=== PATIENT | female | born 1990 | race Caucasian/White ===

== ENCOUNTER 2018-04-06 07:33 | Inpatient (IN) ==
[2018-04-06] MEDS ORDERED: fentaNYL Citrate Inj 100 MCG/2 ML Ampul IV.PUSH PRN ×2 (08:44)
[2018-04-06] MEDS ORDERED: Oxytocin 30 Units/500ml Premix 30 UNITS/500 ML BAG IV.SIG ONE (08:44)
[2018-04-06] MEDS ORDERED: Sod Chloride 0.9% Inj 1,000 ML IV.CONT PRN (08:44)
[2018-04-06] MEDS ORDERED: Oxytocin 30 Units/500ml Premix 30 UNITS/500 ML BAG IV.SIG PRN (08:44)
[2018-04-06] MEDS ORDERED: Sodium Chlor 0.9% Inj 500 ML IV.SIG PRN (08:44)
[2018-04-06] MEDS ORDERED: Naloxone Inj 0.4 MG/ML Vial IV.PUSH PRN ×2 (08:44→14:15)
[2018-04-06] MEDS ORDERED: Citric Acid/Sodium Citrate Liq 30 ML UDC PO SCH (08:45)
[2018-04-06 09:16] LABS: Baso % (Auto) 0.2 % (0.0-2.0); Eos % (Auto) 0.7 % (0.0-4.0); Hematocrit 37.3 % (35.0-46.0); Hemoglobin 12.5 gm/dL (11.6-15.3); Lymph # (Auto) 1.3 th/mm3 (1.0-4.8); Lymph % (Auto) 18.1 % (9.0-44.0); Mean Corpuscular HGB Conc 33.5 % (32.0-36.0); Mean Corpuscular Volume 83.7 fL (80.0-100.0); Mean Platelet Volume 8.6 fL (7.0-11.0); Mono # (Auto) 0.5 th/mm3 (0.0-0.9); Neut # (Auto) 5.2 th/mm3 (1.8-7.7); Platelet Count 202 th/mm3 (150-450); Red Blood Count 4.45 mil/mm3 (4.00-5.30); Red Cell Distribution Width 14.2 % (11.6-17.2)
[2018-04-06] MEDS ORDERED: fentaNYL 2MCG-Bupiv 0.125% Epi 150 ML EPIDURAL ONE (10:50)
[2018-04-06] MEDS ORDERED: Lidocaaine 1.5%/Epinephrine 1:200,000 PF Inj 5 ML Amp ONE (10:55)
[2018-04-06] MEDS ORDERED: Lidocaine PF 1% Inj 5 ML Vial ONE (10:55)
[2018-04-06 11:13] LABS: Bilirubin,Urine Negative (Negative); Clarity,Urine Hazy (Clear); Color,Urine Yellow (Yellw/Straw); Glucose,Urine (UA) Negative (Negative); Leukocyte Esterase,Urine Trace (Negative); Mucus,Urine Few /lpf (Occasional); Nitrite,Urine Negative (Negative); Specific Gravity,Urine 1.018 (1.002-1.035); Squamous Epithelial Cell,Urine 5 /hpf (0-5)
[2018-04-06 11:15] LABS: Amphetamine Urine With Conf Neg (Neg); Benzodiazepine Urine With Conf Neg (Neg)
--- NOTE | 2018-04-06 14:09 | P.HPOB ---
History of Present Illness Service: ob Primary Care Physician: No Primary Care Physician Chief Complaint: iol History of Present Illness: 27 yo withiup at 39 wk admitted for iol as she has favorable cervix at term. 39w2 d today. SVE 4-50/-2. good fm, irreg ctx, neg vb or lof. 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 Weeks Gestation:: 39 Para: 1 : 2 - Inpatient Certification I certify that the inpatient services were ordered in accordance with Medicare regulations governing the order. This includes certification that hospital inpatient services are reasonable and necessary and in the case of services not specified as inpatient-only under 42 CFR 419.22(n), that they are appropriately provided as inpatient services in accordance to with the 2-midnight benchmark under 43 CFR 412.3(e) Estimated Total Length of Stay (Days): 3 Plans for Post Hospital Care: Home Review of Systems All other systems reviewed negative except as stated in HPI PMFSH - Tobacco History Second Hand Smoke Exposure: No Smoking Status: Never smoker - Travel History Recent Travel in the [place] Within the Last 8 Weeks: No Recent Travel Out of the Country Within the Last 8 Weeks: No Medications and Allergies Active Medications: Active Medications Citric Acid/Sodium Citrate (Sodium Citrate/Citric Acid Liq) 30 ml PO [facility] Stop: 04/10/18 08:44 Fentanyl Citrate (Fentanyl Inj) 50 mcg IV.PUSH Q1H PRN PRN Reason: Pain Scale 3 - 5 Fentanyl Citrate (Fentanyl Inj) 100 mcg IV.PUSH Q1H PRN PRN Reason: PAIN SCALE 6 TO 10 Lactated Ringer's (Lr 1000 Ml Inj) 1,000 mls @ 125 mls/hr IV.CONT .Q8H [facility] Last Admin: 04/06/18 11:16 Dose: 125 mls/hr Lactated Ringer's (Lr 1000 Ml Inj) 1,000 mls @ 3,000 mls/hr IV.SIG UNSCH PRN PRN Reason: compromise or epidural Sodium Chloride (Ns Inj) 500 mls @ 1,000 mls/hr IV.SIG UNSCH PRN PRN Reason: SEE LABEL COMMENTS Oxytocin (Pitocin 30 Units/Ns 500 Ml Premix) 30 units in 500 mls @ 2 mls/hr IV.SIG TITRATE PRN; Protocol PRN Reason: For induction of labor Last Admin: 04/06/18 09:13 Dose: 2 milliunit/min, 2 mls/hr Sodium Chloride (Ns Inj) 1,000 mls @ 100 mls/hr IV.CONT .Q10H PRN PRN Reason: SEE LABEL COMMENTS Lidocaine HCl (Xylocaine 1% Inj) 0.1 ml I-DERMAL PRN PRN PRN Reason: For IV start Stop: 04/09/18 08:43 Lidocaine HCl (Xylocaine 1% Inj) 10 ml INFILTRATN PRN PRN PRN Reason: For episiotomy repair Stop: 04/08/18 08:43 Mineral Oil (Muri-Lube Oil) 10 ml TOPICAL PRN PRN PRN Reason: PRN perineal massage Naloxone HCl (Narcan Inj) 0.1 mg IV.PUSH Q2M PRN PRN Reason: for opiate reversal Ondansetron HCl (Zofran Inj) 4 mg IV.PUSH Q6H PRN PRN Reason: NAUSEA OR VOMITING Allergies Allergy/AdvReac Type Severity Reaction Status Date / Time No Known Allergies Allergy Verified 04/06/18 08:26 Home Medications Medication Instructions Recorded Confirmed Type 21-iron fu-folic acid 1 tab PO DAILY 04/06/18 04/06/18 History Exam Vital signs: Vital Signs 04/06/18 08:01 04/06/18 09:25 04/06/18 09:31 Temperature 98.6 F Pulse Rate 118 H 103 H 91 H Respiratory Rate 16 Blood Pressure 127/83 135/81 129/94 H 04/06/18 09:40 04/06/18 10:05 04/06/18 10:25 Temperature Pulse Rate 97 H 99 H 89 Respiratory Rate Blood Pressure 121/86 118/59 L 04/06/18 10:45 04/06/18 11:13 04/06/18 11:16 Temperature 97.9 F Pulse Rate 91 H 85 96 H Respiratory Rate 18 Blood Pressure 108/62 148/75 H 123/62 04/06/18 11:28 04/06/18 11:30 04/06/18 12:10 Temperature Pulse Rate 102 H 92 H 90 Respiratory Rate Blood Pressure 91/45 L 99/44 L 04/06/18 12:25 04/06/18 13:01 04/06/18 13:15 Temperature Pulse Rate 95 H 103 H 112 H Respiratory Rate Blood Pressure 89/47 L 127/86 04/06/18 13:16 Temperature Pulse Rate 100 H Respiratory Rate Blood Pressure 128/89 Intake & Output 04/05/18 04/06/18 04/06/18 18:59 06:59 18:59 Intake Total 1000 / 1000 Balance 1000 / 1000 Weight 108.862 kg Intake: IV 1000 / 1000 LR 1000 mL Inj 1,000 ML @ 125 1000 / 1000 mls/hr IV.CONT .Q8H [facility] Rx#: [id number] Other: Weight On Admission 108.862 kg - Constitutional no acute distress - Routine HEENT Exam Head: Present: normocephalic - Routine Respiratory Exam Absent: accessory muscle use, decreased breath sounds - Routine Cardiovascular Exam Present: RRR. Absent: murmur - Routine Abdominal Exam Present: soft. Absent: organomegaly - Routine Exam Comments: sve 5/50/-2, arom clear - Routine Extremities Exam Absent: cyanosis, clubbing, edema - Routine Neurological Exam Present: alert, oriented X3 Results - Labs CBC & Chem 7: 04/06/18 08:15 Labs: Laboratory Results - last 24 hr 04/06/18 04/06/18 04/06/18 08:15 08:15 08:15 WBC 7.0 RBC 4.45 Hgb 12.5 Hct 37.3 MCV 83.7 MCH 28.0 MCHC 33.5 RDW 14.2 Plt Count 202 MPV 8.6 Neut % (Auto) 74.0 H Lymph % (Auto) 18.1 [place] % (Auto) 7.0 Eos % (Auto) 0.7 Baso % (Auto) 0.2 Neut # (Auto) 5.2 Lymph # (Auto) 1.3 [place] # (Auto) 0.5 Eos # (Auto) 0.0 Baso # (Auto) 0.0 WBC Differential . Differential Comment Auto diff final Urine Color Urine Clarity Urine pH Ur Specific [place] Urine Protein Urine Glucose (UA) Urine Ketones Urine Occult Blood Urine Nitrate Urine Bilirubin Urine Urobilinogen Ur Leukocyte Esterase Urine WBC Ur Squamous Epith Cells Urine Mucus Micro UA Comment Ur Microscopic Review Urine Culture Comments Urine Opiates Screen Neg Ur Barbiturates Screen Neg Ur Amphetamine Screen Neg U Benzodiazepines Scrn Neg Urine Cocaine Screen Neg U Cannabinoids Screen Neg Blood Type B Negative 04/06/18 08:15 WBC RBC Hgb Hct MCV MCH MCHC RDW Plt Count MPV Neut % (Auto) Lymph % (Auto) [place] % (Auto) Eos % (Auto) Baso % (Auto) Neut # (Auto) Lymph # (Auto) [place] # (Auto) Eos # (Auto) Baso # (Auto) WBC Differential Differential Comment Urine Color Yellow Urine Clarity Hazy H Urine pH 7.0 Ur Specific Kendall 1.018 Urine Protein 30 H Urine Glucose (UA) Negative Urine Ketones Negative Urine Occult Blood Small H Urine Nitrate Negative Urine Bilirubin Negative Urine Urobilinogen Less than 2 Ur Leukocyte Esterase Trace H Urine WBC 3 Ur Squamous Epith Cells 5 Urine Mucus Few H Micro UA Comment Culture not ind Ur Microscopic Review Not Reportable Urine Culture Comments Culture not ind Urine Opiates Screen Ur Barbiturates Screen Ur Amphetamine Screen U Benzodiazepines Scrn Urine Cocaine Screen U Cannabinoids Screen Blood Type Group B Strep: Negative Caprini VTE Risk Assessment Caprini VTE Risk Assessment: No/Low Risk (score <= 1) Caprini Risk Assessment Model: Point Value = 1 Point Value = 2 Point Value = 3 Point Value = 5 Age 41-60 Minor surgery BMI > 25 kg/m2 Swollen legs Varicose veins or History of unexplained or recurrent spontaneous Oral contraceptives or hormone replacement Sepsis (< 1 month) Serious lung disease, including pneumonia (< 1 month) Abnormal pulmonary function Acute myocardial infarction Congestive heart failure (< 1 month) History of inflammatory bowel disease Medical patient at bed rest Age 61-74 Arthroscopic surgery Major open surgery (> 45 min) Laparoscopic surgery (> 45 min) Malignancy Confined to bed (> 72 hours) Immobilizing plaster cast Central venous access Age >= 75 History of VTE Family history of VTE Factor V Leiden Prothrombin [id number] Lupus anticoagulant Anticardiolipin antibodies Elevated serum homocysteine Heparin-induced thrombocytopenia Other congenital or acquired thrombophilia Stroke (< 1 month) Elective arthroplasty Hip, pelvis, or leg fracture Acute spinal cord injury (< 1 month) Prophylaxis Regimen: Total Risk Factor Score Risk Level Prophylaxis Regimen 0-1 Low Early ambulation 2 Moderate Order ONE of the following: *Sequential Compression Device (SCD) *Heparin 5000 units SQ BID 3-4 Higher Order ONE of the following medications: *Heparin 5000 units SQ TID *Enoxaparin/Lovenox 40 mg SQ daily (WT < 150 kg, CrCl > 30 mL/min) *Enoxaparin/Lovenox 30 mg SQ daily (WT < 150 kg, CrCl > 10-29 mL/min) *Enoxaparin/Lovenox 30 mg SQ BID (WT < 150 kg, CrCl > 30 mL/min) AND/OR *Sequential Compression Device (SCD) 5 or more Highest Order ONE of the following medications: *Heparin 5000 units SQ TID (Preferred with Epidurals) *Enoxaparin/Lovenox 40 mg SQ daily (WT < 150 kg, CrCl > 30 mL/min) *Enoxaparin/Lovenox 30 mg SQ daily (WT < 150 kg, CrCl > 10-29 mL/min) *Enoxaparin/Lovenox 30 mg SQ BID (WT < 150 kg, CrCl > 30 mL/min) AND *Sequential Compression Device (SCD) Assessment and Plan - Diagnosis (1) Labor and delivery indication for care or intervention Code(s): O75.9 - Complication of labor and delivery, unspecified Status: Acute (2) Rh negative state in antepartum period Code(s): O09.899 - Supervision of other high risk pregnancies, unspecified trimester; Z67.91 - Unspecified blood type, Rh negative Status: Acute (3) Abnormal glucose tolerance in mother complicating Code(s): O99.810 - Abnormal glucose complicating Status: Acute (4) Obesity (BMI 30-39.9) Code(s): E66.9 - Obesity, unspecified Status: Acute - Plan LAte entry, pt seen at 0845 this am 27 yo withiup at 39 wk admitted for iol as she has favorable cervix at term. 39w2 d today. 1) IOL- arom and pitocin 2) obesity and abn 1 hour- SD precautions 3) RH neg- rhogam eval 4) Varicella non-immune - needs vaccine 5) GBS neg 6) Fetus male roge, efw 7.5-8 lb. Cat I
[2018-04-06] MEDS ORDERED: Benzocaine 20% Top Spray 60 ML Can TOPICAL PRN (14:15)
[2018-04-06] MEDS ORDERED: Witch Hazel 50%/Glyderin 12.5% 40 Pad Jar RECTAL PRN (14:15)
[2018-04-06] MEDS ORDERED: Bisacodyl 10 MG Supp RECTAL PRN (14:15)
[2018-04-06] MEDS ORDERED: Ibuprofen 400 MG Tablet PO PRN (14:15)
[2018-04-06] MEDS ORDERED: Zolpidem Tartrate 5 MG Tablet PO PRN (14:15)
[2018-04-06] MEDS ORDERED: Oxytocin 30 Units/500ml Premix 30 UNITS/500 ML BAG IV.CONT PRN (14:15)
[2018-04-06] MEDS ORDERED: Acetaminophen 325 MG Tablet PO PRN (14:15)
--- NOTE | 2018-04-06 14:15 | P.OBDELI ---
Weeks Gestation: 39 Patient Started Active Labor: Yes Artificial Rupture of Membrane: Yes (clear) Anesthesia: Epidural Episiotomy: none Vaginal Delivery: Normal Presentation: Occiput anterior Nuchal Cord: None Delayed Cord Clamping (45 sec): Yes Shoulder Dystocia: Suprapubic pressure given, Tati maneuver done, Other ( less than 30 sec from delivery of head to body. Tati and suprapubic performed. Anterior shoulder palpated and not under suprapubic bone. Posterior shoulder delivered easily and rest of body readily followed. ) Placenta: Spontaneous delivery, Intact Laceration: 1 deg (right labial) Repair: Chromic interrupted (one figuer of 8 with 3-0 chromic) Estimated blood loss (mL): 500 : Male Infant Female A Infant Delivery Date: 04/06/18 Delivery Time: 13:45 Weight: 3.884 kg score (1 min): 8 score (5 min): 9
[2018-04-06] MEDS ORDERED: fentaNYL 2MCG-Bupiv 0.125% Epi 150 ML EPIDURAL PRN (14:54)
[2018-04-06] MEDS ORDERED: fentaNYL Citrate Inj 100 MCG/2 ML Ampul EPIDURAL ONE (14:54)
[2018-04-06] MEDS ORDERED: Diphtheria/Tetanus/Pertussis Vaccine Inj 0.5 ML Syringe IM ONE (16:00)
[2018-04-06] MEDS ORDERED: Varicella Vaccine Live 1350 UNITS/0.5 ML Vial SQ ONE (16:00)
[2018-04-06] MEDS ORDERED: Rho Immune Globulin Inj 1,500 UNIT/1.3 ML Vial IM ONE (16:00)
[2018-04-06] MEDS ORDERED: Measles/Mumps/Rubella Vaccine Inj 0.5 ML Vial SQ ONE (16:00)
[2018-04-07] MEDS: Senna/Docusate Sodium 8.6/50 MG Tablet PO SCH ×2 (01:13→21:39)
--- NOTE | 2018-04-07 08:07 | P.PNOB ---
Subjective Post day: 1 Interval history: doing well, breast and bottlefeeding, wants to go home this afternoon if baby cleared Objective Vital Signs/I&O: Vital Signs 04/06/18 09:25 04/06/18 09:31 04/06/18 09:40 Temperature Pulse Rate 103 H 91 H 97 H Respiratory Rate Blood Pressure 135/81 129/94 H 04/06/18 10:05 04/06/18 10:25 04/06/18 10:45 Temperature Pulse Rate 99 H 89 91 H Respiratory Rate Blood Pressure 121/86 118/59 L 108/62 04/06/18 11:13 04/06/18 11:16 04/06/18 11:28 Temperature 97.9 F Pulse Rate 85 96 H 102 H Respiratory Rate 18 Blood Pressure 148/75 H 123/62 04/06/18 11:30 04/06/18 12:10 04/06/18 12:25 Temperature Pulse Rate 92 H 90 95 H Respiratory Rate Blood Pressure 91/45 L 99/44 L 89/47 L 04/06/18 13:01 04/06/18 13:15 04/06/18 13:16 Temperature Pulse Rate 103 H 112 H 100 H Respiratory Rate Blood Pressure 127/86 128/89 04/06/18 13:31 04/06/18 14:01 04/06/18 14:15 Temperature 97.9 F Pulse Rate 214 H 90 Respiratory Rate 16 Blood Pressure 99/76 L 106/35 L 04/06/18 14:31 04/06/18 14:46 04/06/18 15:37 Temperature 99.4 F Pulse Rate 90 101 H 103 H Respiratory Rate 18 Blood Pressure 94/45 L 103/64 113/68 04/06/18 20:00 Temperature 98.9 F Pulse Rate 95 H Respiratory Rate 20 Blood Pressure 121/80 Intake & Output 04/06/18 04/07/18 04/07/18 18:59 06:59 18:59 Intake Total 1000 / 1000 Balance 1000 / 1000 Weight 108.862 kg Intake: IV 1000 / 1000 LR 1000 mL Inj 1,000 ML @ 125 1000 / 1000 mls/hr IV.CONT .Q8H [facility] Rx#: [id number] Other: Weight On Admission 108.862 kg Result Diagrams: 04/06/18 08:15 Objective Remarks: GENERAL: Well-nourished, well-developed patient. CARDIOVASCULAR: Regular rate and rhythm without murmurs, gallops, or rubs. RESPIRATORY: Breath sounds equal bilaterally. No accessory muscle use. ABDOMEN/GI: Abdomen soft, non-tender. Fundus: Firm, non-tender at umbilicus. GENITOURINARY: Light to moderate bleeding. EXTREMITIES: No cyanosis or edema, non-tender, without signs of DVT. Medications and IVs: Active Medications Acetaminophen (Tylenol) 650 mg PO Q4H PRN PRN Reason: PAIN SCALE 1 TO 2 Al Hydroxide/Mg Hydroxide (Milk Of Magnesia Liq) 30 ml PO Q12H PRN PRN Reason: Mild Constipation Benzocaine (Americaine 20% [place]) 1 spray TOPICAL Q4H PRN PRN Reason: For Perineum Discomfort Bisacodyl (Dulcolax Supp) 10 mg RECTAL DAILY PRN PRN Reason: SEVERE CONSITIPATION Ephedrine Sulfate (Ephedrine/Ns Syringe) 10 mg IV.PUSH UNSCH PRN PRN Reason: SEE LABEL COMMENTS Stop: 04/07/18 14:54 Oxytocin (Pitocin 30 Units/Ns 500 Ml Premix) 30 units in 500 mls @ 100 mls/hr IV.CONT UNSCH PRN PRN Reason: Heavy bleeding Fentanyl/Bupivacaine/Sodium Chlor (Fentanyl 2 Mcg-Bupiv 0.125% Epi) 150 mls @ 12 mls/hr EPIDURAL PRN PRN PRN Reason: for Labor Pain Ibuprofen (Motrin) 800 mg PO Q8H PRN PRN Reason: For Cramping Lactulose (Lactulose Liq) 30 ml PO DAILY PRN PRN Reason: SEVERE CONSITIPATION Miscellaneous Information (Misc Information) 1 each OTHER UNSCH PRN PRN Reason: SEE LABEL COMMENTS Stop: 04/07/18 14:54 Miscellaneous Information (Misc Information) 1 each OTHER UNSCH PRN PRN Reason: SEE LABEL COMMENTS Stop: 04/07/18 14:54 Naloxone HCl (Narcan Inj) 0.1 mg IV.PUSH Q2M PRN PRN Reason: for opiate reversal Ondansetron HCl (Zofran Inj) 4 mg IV.PUSH Q6H PRN PRN Reason: NAUSEA OR VOMITING Ondansetron HCl (Zofran Odt) 4 mg PO Q6H PRN PRN Reason: NAUSEA OR VOMITING Ranitidine HCl (Zantac Liq) 150 mg PO BID [facility] Last Admin: 04/07/18 01:13 Dose: Not Given Senna/Docusate Sodium (Josiane-Colace) 1 tab PO BID [facility] Last Admin: 04/07/18 01:13 Dose: Not Given Sennosides (Senokot) 17.2 mg PO Q12H PRN PRN Reason: Moderate Constipation Sodium Chloride (Ns Flush) 2 ml IV.FLUSH BID [facility] Last Admin: 04/07/18 01:13 Dose: Not Given Sodium Chloride (Ns Flush) 2 ml IV.FLUSH PRN PRN PRN Reason: FLUSH AFTER USING IV ACCESS Witch Shira/Glycerin (Tucks Pads) 1 applicatio RECTAL QID PRN PRN Reason: HEMORRHOIDS Zolpidem Tartrate (Ambien) 5 mg PO HS PRN PRN Reason: SLEEP Assessment and Plan - Diagnosis (1) Labor and delivery indication for care or intervention Code(s): O75.9 - Complication of labor and delivery, unspecified Status: Acute (2) Rh negative state in antepartum period Code(s): O09.899 - Supervision of other high risk pregnancies, unspecified trimester; Z67.91 - Unspecified blood type, Rh negative Status: Acute (3) Abnormal glucose tolerance in mother complicating Code(s): O99.810 - Abnormal glucose complicating Status: Acute (4) Obesity (BMI 30-39.9) Code(s): E66.9 - Obesity, unspecified Status: Acute (5) Vaginal delivery Code(s): O80 - Encounter for full-term uncomplicated delivery Status: Acute - Plan 27 yo withiup at 39 wk admitted for iol as she has favorable cervix at term. . 1) IOL- arom and pitocin 2) obesity and abn 1 hour- SD precautions 3) RH neg- rhogam eval 4) Varicella non-immune - needs vaccine 5) GBS neg 6) Fetus male roge, efw 7.5-8 lb. Cat I S/P PPD#1 doing well, circ done discharge planning, routine PP care Discharge Planning: today - Attending Attestation pt seen by me
--- NOTE | 2018-04-08 07:12 | P.PNOB ---
Subjective Post day: 2 Interval history: Doing well, meeting milestones, ambulating without difficulty, voiding spontaneously, vaginal bleeding less than menses. Objective Vital Signs/I&O: Vital Signs 04/07/18 09:46 04/07/18 20:00 Temperature 98.1 F 98.0 F Pulse Rate 90 73 Respiratory Rate 18 18 Blood Pressure 114/73 118/81 Intake & Output 04/07/18 04/08/18 04/08/18 18:59 06:59 18:59 Intake Total 0 / 0 Balance 0 / 0 Intake: Intake (Blood Product) Amt 0 / 0 Rho(D) Immune Globulin Unit 0 / 0 [id number] Result Diagrams: 04/06/18 08:15 Objective Remarks: GENERAL: Well-nourished, well-developed patient. CARDIOVASCULAR: Regular rate and rhythm without murmurs, gallops, or rubs. RESPIRATORY: Breath sounds equal bilaterally. No accessory muscle use. ABDOMEN/GI: Abdomen soft, non-tender. Fundus: Firm, non-tender at umbilicus. GENITOURINARY: Light to moderate bleeding. EXTREMITIES: No cyanosis or edema, non-tender, without signs of DVT. Medications and IVs: Active Medications Acetaminophen (Tylenol) 650 mg PO Q4H PRN PRN Reason: PAIN SCALE 1 TO 2 Al Hydroxide/Mg Hydroxide (Milk Of Magnesia Liq) 30 ml PO Q12H PRN PRN Reason: Mild Constipation Benzocaine (Americaine 20% [place]) 1 spray TOPICAL Q4H PRN PRN Reason: For Perineum Discomfort Bisacodyl (Dulcolax Supp) 10 mg RECTAL DAILY PRN PRN Reason: SEVERE CONSITIPATION Oxytocin (Pitocin 30 Units/Ns 500 Ml Premix) 30 units in 500 mls @ 100 mls/hr IV.CONT UNSCH PRN PRN Reason: Heavy bleeding Fentanyl/Bupivacaine/Sodium Chlor (Fentanyl 2 Mcg-Bupiv 0.125% Epi) 150 mls @ 12 mls/hr EPIDURAL PRN PRN PRN Reason: for Labor Pain Ibuprofen (Motrin) 800 mg PO Q8H PRN PRN Reason: For Cramping Lactulose (Lactulose Liq) 30 ml PO DAILY PRN PRN Reason: SEVERE CONSITIPATION Naloxone HCl (Narcan Inj) 0.1 mg IV.PUSH Q2M PRN PRN Reason: for opiate reversal Ondansetron HCl (Zofran Inj) 4 mg IV.PUSH Q6H PRN PRN Reason: NAUSEA OR VOMITING Ondansetron HCl (Zofran Odt) 4 mg PO Q6H PRN PRN Reason: NAUSEA OR VOMITING Ranitidine HCl (Zantac Liq) 150 mg PO BID [facility] Last Admin: 04/07/18 21:39 Dose: Not Given Senna/Docusate Sodium (Josiane-Colace) 1 tab PO BID [facility] Last Admin: 04/07/18 21:39 Dose: Not Given Sennosides (Senokot) 17.2 mg PO Q12H PRN PRN Reason: Moderate Constipation Sodium Chloride (Ns Flush) 2 ml IV.FLUSH BID [facility] Last Admin: 04/07/18 21:39 Dose: Not Given Sodium Chloride (Ns Flush) 2 ml IV.FLUSH PRN PRN PRN Reason: FLUSH AFTER USING IV ACCESS Witch Shira/Glycerin (Tucks Pads) 1 applicatio RECTAL QID PRN PRN Reason: HEMORRHOIDS Zolpidem Tartrate (Ambien) 5 mg PO HS PRN PRN Reason: SLEEP Assessment and Plan - Diagnosis (1) Labor and delivery indication for care or intervention Code(s): O75.9 - Complication of labor and delivery, unspecified Status: Acute (2) Rh negative state in antepartum period Code(s): O09.899 - Supervision of other high risk pregnancies, unspecified trimester; Z67.91 - Unspecified blood type, Rh negative Status: Acute (3) Abnormal glucose tolerance in mother complicating Code(s): O99.810 - Abnormal glucose complicating Status: Acute (4) Obesity (BMI 30-39.9) Code(s): E66.9 - Obesity, unspecified Status: Acute (5) Vaginal delivery Code(s): O80 - Encounter for full-term uncomplicated delivery Status: Acute - Plan 27-year-old status post at 39 weeks 1. day #2: Meeting milestones, and discharge home today, discussed precautions expectations and follow-up. -Male status post circ 2. Rh-: RhoGam per protocol
--- NOTE | 2018-04-08 07:13 | P.DS ---
Date of admission: 04/06/18 07:33 Primary care physician: Janki Primary Care Physician Brief History from admission: 27-year-old 002 who is admitted with a favorable cervix at 39 weeks for induction later, she had a spontaneous vaginal delivery, was d/c on PPD #2. See other notes for details. DS: Diagnosis - Discharge Diagnosis (1) Labor and delivery indication for care or intervention Status: Acute (2) Rh negative state in antepartum period Status: Acute (3) Abnormal glucose tolerance in mother complicating Status: Acute (4) Obesity (BMI 30-39.9) Status: Acute (5) Vaginal delivery Status: Acute DS: Medications - Discharge Medications Prescriptions: ibuprofen 800 mg PO Q8H PRN #30 tab PRN Reason: For Cramping DS: Summary Hospital Course: see brief history - Time Spent with Patient Total time spent providing and/or coordinating discharge services: Less than 30 minutes Exam Vital signs: Vital Signs 04/07/18 09:46 04/07/18 20:00 Temperature 98.1 F 98.0 F Pulse Rate 90 73 Respiratory Rate 18 18 Blood Pressure 114/73 118/81 Intake & Output 04/07/18 04/08/18 04/08/18 18:59 06:59 18:59 Intake Total 0 / 0 Balance 0 / 0 Intake: Intake (Blood Product) Amt 0 / 0 Rho(D) Immune Globulin Unit 0 / 0 [id number] Results Procedures completed during hospitalization: Labs on day of discharge: Labs from last 24 hours 04/06/18 19:32 Blood Type B Negative Ab Screen Tube Method Negative Blood Bank Comment Discharge Plan - Discharge Disposition Patient Disposition: 01 Discharge Home - Discharge Condition Condition: Good - Discharge Order Discharge Orders: Discharge Order (Routine); Ordered 04/08/18 Ordered By: Vashti Heath - Discharge Details Anticipated Discharge Date: 04/08/18 - Physicians Team Primary Care Provider: Primary Janki Lawrence Attending Provider: Coco Carlos - Rxs /Orders / Referrals /Forms Prescriptions: New ibuprofen 400 mg Tablet 800 mg PO Q8H PRN (Reason: For Cramping) Qty: 30 RF: 0 Continue 21-iron fu-folic acid 1 tab PO DAILY Referrals: Primary Care Janki Jay [Primary Care Provider] - See Instructions Coco Carlos MD [Physician] - See Instructions (2 wk) - Discharge Instructions Patient Printed Instructions: Preeclampsia and Eclampsia After Delivery (GEN), Vaginal Delivery (DC) Additional Instructions: Congratulations on your new baby! We want your recovery to be hernandez and trouble free. Please Report the Following Symptoms to Your Doctor: -Temperature above 100.5 degrees -Unusual pain or calf pain -Increased vaginal bleeding -Painful or difficulty urinating -Feelings of extreme sadness or anxiety Goals to Promote Your Health * To prevent worsening of your condition and complications * To maintain your health at the optimal level Directions to Meet Your Goals Take your medications as prescribed Follow your dietary instruction Follow activity as directed Ensure plenty of rest for recovery Drink fluids for hydration Keep your appointments as scheduled Take your immunizations and boosters as scheduled If your symptoms worsen call your OB Physician, or go to an Urgent Care Center or Emergency Room Smoking is Dangerous to your health. Avoid second hand smoke Call the 24-hour crisis hotline for domestic abuse at [employer].
[2018-04-08] MEDS: Senna/Docusate Sodium 8.6/50 MG Tablet PO SCH (08:05)
== END 2018-04-08 10:55 | disposition home or self-care (01) ==
LOC: H2E 07:33 → H1EA 15:28
PROVIDERS: ADMIT Obstetrics & Gynecology; ATTEND Obstetrics & Gynecology